=== PATIENT | female | born 1955 | race Caucasian/White ===

== ENCOUNTER 2017-03-26 21:11 | Inpatient (IN) | payer MEDICARE, MEDICAID ==
[~2017-03-26] VITALS: Ht 165.1 cm; Wt 93.8 kg
[~2017-03-26 21:11] MED LIST: BUP PF; CLON PF; MORPHINE PF; PAIN PUMP
[2017-03-26] MEDS ORDERED: ONDANSETRON 2MG/ML, 2ML ONE (21:40)
[2017-03-26] MEDS ORDERED: SODIUM CHLORIDE 0.9% 1,000ML IVBOLUS ONE (22:00)
[2017-03-26] MEDS ORDERED: ONDANSETRON 2MG/ML, 2ML IVPush ONE (22:00)
[2017-03-26] MEDS ORDERED: SODIUM CHLORIDE FLUSH 10ML SYR IVF ONE (22:00)
[2017-03-26 22:42] LABS: ASPARTATE AMINO TRANSFERASE 19 U/L (15-37); BLOOD UREA NITROGEN 23 mg/dL (7-18)
[2017-03-26 23:01] LABS: IS PT STATUS REG ER OR PRE ER? YES
[2017-03-26] MEDS ORDERED: LEVO50TA5 PO (23:18)
[2017-03-26] MEDS ORDERED: ACETAMINOPHEN 325 MG TABLET PO PRN (23:30)
[2017-03-26] MEDS ORDERED: ONDANSETRON 2MG/ML, 2ML IVPush PRN (23:30)
[2017-03-27] MEDS ORDERED: MORPHINE PF PRN (00:30)
[2017-03-27] MEDS ORDERED: CLON PF PRN (00:30)
[2017-03-27] MEDS ORDERED: BUP PF PRN (00:30)
[2017-03-27] MEDS: SODIUM CHLORIDE 0.9% 1,000 ML IV SCH ×2 (00:50→17:00)
[2017-03-27 00:54] VITALS: BP 112/71
[2017-03-27 01:46] VITALS: BP 112/71
[2017-03-27 06:55] LABS: BLOOD UREA NITROGEN 20 mg/dL (7-18)
[2017-03-27 07:29] VITALS: BP 100/66
[2017-03-27] MEDS: LEVOTHYROXINE 50 MCG TABLET PO SCH (09:06)
[2017-03-27 13:11] VITALS: BP 96/64
[2017-03-27 20:00] VITALS: BP 101/55
[2017-03-28] MEDS: SODIUM CHLORIDE 0.9% 1,000 ML IV SCH ×2 (01:00→08:19)
[2017-03-28 02:00] VITALS: BP 98/59
[2017-03-28 07:40] VITALS: BP 93/43
[2017-03-28] MEDS: LEVOTHYROXINE 50 MCG TABLET PO SCH (08:18)
[2017-03-28] MEDS ORDERED: SODIUM CHLORIDE 0.9% 1,000ML IVBOLUS PRN (09:00)
== END 2017-03-28 13:59 | disposition home or self-care (01) | DRG 917 ==
LOC: ED 23:00 → EDIP 23:12 → SUATTDRO 23:28 → 4EST 03-27 00:19 → DCLOUNGE 03-28 13:49
PROVIDERS: ADMIT Internal Medicine; ATTEND Internal Medicine
DX: T50.991A Poisoning by other drugs, medicaments and biological substances, accidental (unintentional), initial encounter (principal); I63.9 Cerebral infarction, unspecified; E03.9 Hypothyroidism, unspecified; G89.29 Other chronic pain; D50.9 Iron deficiency anemia, unspecified; E86.0 Dehydration; M41.9 Scoliosis, unspecified; M79.7 Fibromyalgia; Y92.89 Other specified places as the place of occurrence of the external cause; Y92.481 Parking lot as the place of occurrence of the external cause; Y93.89 Activity, other specified; R73.9 Hyperglycemia, unspecified
CPT/HCPCS: 36415; 70450; 71010; 80048; 80053; 81003; 83735; 84443; 84484; 85025; 93005; 96361; 96374; J2405; J7030